=== PATIENT | female | born 1955 | race Caucasian/White ===

== ENCOUNTER 2017-02-04 22:05 | Observation (INO) | payer BC ==
[2017-02-05 00:37] VITALS: BMI 33.0
[2017-02-05] MEDS ORDERED: MORPHINE SULFATE 2 MG/ML SYRINGE IVP PRN (00:58)
[2017-02-05] MEDS ORDERED: ONDANSETRON 4 MG/2 ML VIAL IVP PRN (00:59)
[2017-02-05] MEDS ORDERED: ACETAMINOPHEN TAB 325 MG TAB PO PRN (00:59)
[2017-02-05] MEDS ORDERED: METOPROLOL SUCCINATE (ER) 25 MG TAB.ER.24H PO SCH (01:00)
[2017-02-05] MEDS ORDERED: TRIAMTERENE-HCTZ 37.5-25MG 1 EACH CAP PO SCH (01:00)
[2017-02-05 07:45] VITALS: RESP 18
--- NOTE | 2017-02-05 08:07 | P.CRDCN ---
History of Present Illness Consult date: 02/05/17 Consult reason: chest pain History of present illness: Known coronary artery disease status post CABG in 2013 who sees a snowsport instructor in [facility] presented to the emergency room at [facility] complaining of chest discomfort. She describes her symptoms as squeezing sensation in her chest and her jaw and she in fact has similar symptoms all over her body. There is no history of exertional chest pain shortness of breath paroxysmal nocturnal dyspnea or orthopnea. There is no history of syncope. There is no history of focal neurological deficits. Patient is somewhat forgetful and is a poor historian. I have an EKG on her that shows sinus rhythm with nonspecific ST-T wave changes the first set of troponin at [facility] is negative. I don't have the second troponin this morning. She is intolerant of statins. At the time of my evaluation she appears comfortable at rest and is free of symptoms. In the atypical nature of her symptoms I advised her to undergo stress test for further evaluation this is negative she'll be discharged home if this is abnormal she will undergo invasive angiography Review of Systems Constitutional: Denies chills. Denies fever. Eyes: Denies blurred vision. Denies pain. Ears, nose, mouth and throat: Denies headache. Denies sore throat. Cardiovascular: Has chest pain. Denies shortness of breath. Respiratory: Denies cough. Gastrointestinal: Denies abdominal pain. Denies diarrhea. Denies nausea. Denies vomiting. Musculoskeletal: Denies myalgias. Complains of muscle spasms Integumentary: Denies pruritus. Denies rash. Neurological: Denies numbness. Denies weakness. Psychiatric: Denies anxiety. Denies depression. Endocrine: Denies fatigue. Denies weight change. Genitourinary: Denies burning, hematuria, frequency of urination. Hematological: No anemia or excess bleeding. Past Medical History Past Medical History: GERD/Reflux, Hypertension, Pneumonia Additional Past Medical History / Comment(s): Arthritis, DDD History of Any Multi-Drug Resistant Organisms: None Reported Past Surgical History: Section, Coronary Bypass/CABG, Tonsillectomy, Tubal Ligation Additional Past Surgical History / Comment(s): 4 vessel CABG, X2, All teeth are removed Past Anesthesia/Blood Transfusion Reactions: No Reported Reaction Past Psychological History: Anxiety, Depression Smoking Status: Former smoker Past Alcohol Use History: None Reported Past Drug Use History: None Reported - Past Family History Mother Family Medical History: CVA/TIA Father Family Medical History: Congestive Heart Failure (CHF) Additional Family Medical History / Comment(s): kidney failure Brother(s) Family Medical History: Myocardial Infarction ([place]) Additional Family Medical History / Comment(s): Has 4 brothers all with heart issues. Had CABG Sister(s) Family Medical History: Cancer Additional Family Medical History / Comment(s): Bone CA and heart issues Medications and Allergies Home Medications Medication Instructions Recorded Confirmed Type Metoprolol Succinate (ER) [Toprol 25 mg PO HS 02/05/17 02/05/17 History Xl] Triamterene-Hctz 37.5-25Mg 1 tab PO HS 02/05/17 02/05/17 History [Dyazide 37.5-25 Capsule] Allergies Allergy/AdvReac Type Severity Reaction Status Date / Time furosemide [From Lasix] Allergy Unknown Verified 02/05/17 07:54 diclofenac [From Cataflam] AdvReac Nausea & Verified 02/05/17 07:54 Vomiting statins AdvReac Unknown Uncoded 02/05/17 00:27 Physical Exam Vitals: Vital Signs Temp Pulse Resp BP Pulse Ox 02/05/17 07:44 97.5 F L 61 18 113/69 95 02/05/17 04:00 97.9 F 71 16 119/69 96 02/05/17 01:09 18 02/05/17 00:50 97.6 F 69 16 120/68 96 Intake and Output 02/04/17 02/05/17 02/05/17 22:59 06:59 14:59 Other: # Voids 1 Weight 82 kg General: The patient is awake and alert, in no distress, and does not appear acutely ill. Skin: Skin is warm and dry and no rashes or lesions are noted. Eye: Pupils are equal, round and reactive to light, extra-ocular movements are intact; there is normal conjunctiva bilaterally. Ears, nose, mouth and throat: There are moist mucous membranes and no oral lesions. Neck: The neck is supple, there is no tenderness or JVD. Cardiovascular: There is a regular rate and rhythm. No murmur, rub or gallop is appreciated. Respiratory: Lungs are clear to auscultation, respirations are non-labored, breath sounds are equal. Gastrointestinal: Soft, non-distended, non-tender abdomen without masses or organomegaly noted. There is no rebound or guarding present. Bowel sounds are unremarkable. Back: There is no tenderness to palpation in the midline. There is no obvious deformity. Musculoskeletal: Normal ROM, no tenderness, There is no pedal edema. There is no calf tenderness or swelling. Extremities: No edema. Vascular: Femoral pulse is normal. Posterior tibial pulses are normal .Dorsalis pedis is palpable. Neurological: CN II-XII intact. There are no obvious motor or sensory deficits. Speech is normal. Psychiatric: Cooperative, appropriate mood & affect, normal judgment. Results Current Medications Generic Name Dose Route Start Last Admin Trade Name Freq PRN Reason Stop Dose Admin Acetaminophen 650 mg 02/05/17 00:59 Tylenol Tab PO Q4HR PRN Fever and/ or Pain Aspirin 81 mg 02/05/17 09:00 Aspirin PO DAILY KANNAN Metoprolol Succinate 25 mg 02/05/17 01:00 02/05/17 01:44 Toprol Xl PO 25 mg HS KANNAN Administration Morphine Sulfate 2 mg 02/05/17 00:58 Morphine Sulfate (Inj) IVP Q4H PRN Pain/Discomfort Ondansetron HCl 4 mg 02/05/17 00:59 Zofran IVP Q6HR PRN Nausea And Vomiting Triamterene/HCTZ 1 each 02/05/17 01:00 02/05/17 01:44 Dyazide PO 1 each HS KANNAN Administration Intake and Output 02/04/17 02/05/17 02/05/17 22:59 06:59 14:59 Other: # Voids 1 Weight 82 kg EKG Interpretations (text) Normal sinus rhythm with nonspecific ST-T wave changes Assessment and Plan Plan: Pericardial chest pain CAD status post CABG I will obtain another set of troponin and this is negative scheduled the patient for a stress test
[2017-02-05] MEDS ORDERED: ASPIRIN 81 MG PO SCH (09:00)
[2017-02-05 09:23] LABS: Creatine Kinase 57 U/L (30-135)
[2017-02-05 09:35] LABS: Creatine Kinase MB 0.8 ng/mL (0.0-2.4); Troponin I <0.012 ng/mL (0.000-0.034)
[2017-02-05] MEDS ORDERED: DOBUTamine DRIP for NUC MED 500 MG in DEXTROSE/WATER 1 250ML.BAG IV ONE (09:43)
--- NOTE | 2017-02-05 09:56 | ECHOF ---
Referral Reason:chest pain MEASUREMENTS -------- HEIGHT: 157.5 cm WEIGHT: 81.6 kg BP: IVSd: 0.7 cm (0.6 - 1.1) LVIDd: 4.8 cm (3.9 - 5.3) LVPWd: 0.9 cm (0.6 - 1.1) IVSs: 1.4 cm LVIDs: 2.4 cm LVPWs: 1.8 cm Ao Diam: 2.7 cm (2.0 - 3.7) AV Cusp: 1.9 cm (1.5 - 2.6) LA Diam: 3.6 cm (2.7 - 3.8) MV EXCURSION: 19.436 mm (> 18.000) MV EF SLOPE: 102 mm/s (70 - 150) EPSS: 0.3 cm MV E Sergei: 0.95 m/s MV DecT: 238 ms MV A Sergei: 0.71 m/s MV E/A Ratio: 1.33 RAP: 5.00 mmHg RVSP: 26.04 mmHg FINDINGS -------- Sinus rhythm. This was a technically good study. The left ventricular size is normal. Left ventricular wall thickness is normal. Overall left ventricular systolic function is normal with, an EF between 55 - 60 %. There is paradoxical/dysynergic septal motion consistent with post-operative status. The right ventricle is normal in size and function. The left atrium is normal in size. The right atrium is normal in size. The aortic valve is trileaflet, and appears structurally normal. No aortic stenosis or regurgitation. The mitral valve leaflets are mildly thickened. Mild mitral regurgitation is present. Mild tricuspid regurgitation present. The right ventricular systolic pressure, as measured by Doppler, is 26.04mmHg. Pulmonic valve appears structurally normal. The aortic root size is normal. The pericardium is normal. CONCLUSIONS -------- 1. Sinus rhythm. 2. The aortic valve is trileaflet, and appears structurally normal. No aortic stenosis or regurgitation. 3. The mitral valve leaflets are mildly thickened. 4. Mild mitral regurgitation is present. 5. Mild tricuspid regurgitation present. 6. The right ventricular systolic pressure, as measured by Doppler, is 26.04mmHg. 7. Pulmonic valve appears structurally normal. 8. The aortic root size is normal. 9. The pericardium is normal. 10. This was a technically good study. 11. The left ventricular size is normal. 12. Left ventricular wall thickness is normal. 13. Overall left ventricular systolic function is normal with, an EF between 55 - 60 %. 14. There is paradoxical/dysynergic septal motion consistent with post-operative status. 15. The right ventricle is normal in size and function. 16. The left atrium is normal in size. 17. The right atrium is normal in size. WARP KNITTER: Sudha Landin RDCS
[2017-02-05] MEDS ORDERED: ATROPINE SULFATE 0.1 MG/ML 10ML SYRINGE ONE (10:25)
--- NOTE | 2017-02-05 11:11 | ECHOS ---
STRESS ECHOCARDIOGRAM DATE OF SERVICE: 02/05/2017 DOBUTAMINE STRESS ECHO MEDICATIONS:: BASELINE HEART RATE: 74 BASELINE BLOOD PRESSURE: 110/57 MAXIMUM HEART RATE: 142 MAXIMUM BLOOD PRESSURE: 144/47 85% MPHR: 136 100% MPHR: 160 METS: MAXIMUM STAGE REACHED: TOTAL EXERCISE TIME: INDICATIONS: Shortness of breath. CLINICAL INFORMATION: Baseline EKG shows sinus rhythm, normal axis, normal intervals. The patient was given intravenous dobutamine over a period of 9-1/2 minutes as per protocol. Did not achieve target heart rate. Hence she received 0.5 mg of atropine following which she attained 88% of predicted maximal heart rate without chest pain. At peak exercise, there was [address]-segment depression noted Baseline echo shows normal left ventricular size, wall motion and systolic function. There is atypical septal motion noted secondary to prior bypass surgery. Post dobutamine infusion, there was normal hyperdynamic response of all segments of myocardium noted. CONCLUSIONS: 1. Nondiagnostic EKG changes with dobutamine infusion. 2. Negative dobutamine echo. MMODL / IJN: [id number] /
[2017-02-05 15:47] VITALS: BP 105/67; PULSE 78; TEMP 98.2
[2017-02-05] MEDS ORDERED: MAG HYDROX/AL HYDROX/SIMETH 30 ML CUP PO STA (16:07)
--- NOTE | 2017-02-05 16:19 | P.HPIM ---
History of Present Illness H&P Date: 02/05/17 Chief Complaint: Chest pain Mr. Maurer is a 61-year-old female with a known history of coronary artery disease status post quadruple bypass graft in 2012 hypertension and other medical problems was admitted hospital at [place] and was transferred with complaints of chest pain/discomfort. Patient apparently has been having chest discomfort mainly lower midsternal and epigastric region. Symptoms are more like squeezing-like pain some dressing to jaw and left shoulder. Patient otherwise denied any nausea. No dizziness or lightheadedness. Patient has been having symptoms for the past 4-5 days and is getting worse which made her go to the hospital. EKG showed normal sinus rhythm with nonspecific ST-T wave changes. Initial troponin at [facility] is negative. Patient still having epigastric discomfort at this time. Patient was seen by cardiology and stress test was ordered. No fever no chills. No recent illnesses. Patient is having chronic left lower leg swelling from the vein graft from bypass surgery. patient does take Lasix for that. Patient denied any increased or worsening leg swelling recently. Review of Systems Constitutional: Patient denies any fever or chills . No generalized weakness or weight loss. Abdomen: Patient denied nausea vomiting and diarrhea and he does have epigastric discomfort.. Cardiovascular: Patient denies any chest pain or short of breath no palpitations. Respiratory: patient denied any cough is from production. No shortness of breath Neurologic: Patient denied any numbness or tingling headache. Musculoskeletal: Patient denies any complaints of joint swelling or deformity. Skin: Negative Psychiatric: Negative Endocrine: No heat or cold intolerance. No recent weight gain. Genitourinary: No dysuria or hematuria. All other 14 point ROS negative except the above Past Medical History Past Medical History: GERD/Reflux, Hypertension, Pneumonia Additional Past Medical History / Comment(s): Arthritis, DDD History of Any Multi-Drug Resistant Organisms: None Reported Past Surgical History: Section, Coronary Bypass/CABG, Tonsillectomy, Tubal Ligation Additional Past Surgical History / Comment(s): 4 vessel CABG, X2, All teeth are removed Past Anesthesia/Blood Transfusion Reactions: No Reported Reaction Past Psychological History: Anxiety, Depression Smoking Status: Former smoker Past Alcohol Use History: None Reported Past Drug Use History: None Reported - Past Family History Mother Family Medical History: CVA/TIA Father Family Medical History: Congestive Heart Failure (CHF) Additional Family Medical History / Comment(s): kidney failure Brother(s) Family Medical History: Myocardial Infarction ([place]) Additional Family Medical History / Comment(s): Has 4 brothers all with heart issues. Had CABG Sister(s) Family Medical History: Cancer Additional Family Medical History / Comment(s): Bone CA and heart issues Medications and Allergies Home Medications Medication Instructions Recorded Confirmed Type Metoprolol Succinate (ER) [Toprol 25 mg PO HS 02/05/17 02/05/17 History Xl] Triamterene-Hctz 37.5-25Mg 1 tab PO HS 02/05/17 02/05/17 History [Dyazide 37.5-25 Capsule] Allergies Allergy/AdvReac Type Severity Reaction Status Date / Time furosemide [From Lasix] Allergy Unknown Verified 02/05/17 07:54 diclofenac [From Cataflam] AdvReac Nausea & Verified 02/05/17 07:54 Vomiting statins AdvReac Unknown Uncoded 02/05/17 00:27 Physical Exam Vitals: Vital Signs Temp Pulse Resp BP Pulse Ox 02/05/17 11:22 97.5 F L 72 18 117/84 97 02/05/17 07:44 97.5 F L 61 18 113/69 95 02/05/17 04:00 97.9 F 71 16 119/69 96 02/05/17 01:09 18 02/05/17 00:50 97.6 F 69 16 120/68 96 Intake and Output 02/04/17 02/05/17 02/05/17 22:59 06:59 14:59 Intake Total 400 Balance 400 Intake: Oral 400 Other: Voiding Method Toilet # Voids 1 Weight 82 kg 81.647 kg Patient Weight 02/06/17 06:59 Weight 81.647 kg PHYSICAL EXAMINATION: Patient is lying in the bed comfortably, no acute distress, awake alert and oriented.. HEENT: Normocephalic. Neck is supple. Pupils reactive. Nostrils clear. Oral cavity is moist. Ears reveal no drainage. Neck reveals no JVD, carotid bruits, or thyromegaly. CHEST EXAMINATION: Trachea is central. Symmetrical expansion. Lung sanderson clear to auscultation and percussion. CARDIAC: Normal S1, S2 with no gallops. No murmurs ABDOMEN: Soft. Bowel sounds normal. No organomegaly. No abdominal bruits. Extremities: Left lower extremity 2+ edema. No right-sided leg swelling. No clubbing or cyanosis Neurologically awake, alert, oriented x3 with well-coordinated movements. No focal deficits noted Skin: No rash or skin lesions. Psychiatric: Operative. Nonsuicidal Musculoskeletal: No joint swelling or deformity. Normal range of motion. Results Results: Laboratory data at [facility] was reviewed. Potassium 3.6 Troponin less than 0.012 Thrombosis Risk Factor Assmnt - DVT/VTE Prophylaxis DVT/VTE Prophylaxis: Pharmacologic Prophylaxis ordered - Choose All That Apply Each Factor Represents 1 point: Age 41-60 years Thrombosis Risk Factor Assessment Total Risk Factor Score: 1 Thrombosis Risk Factor Assessment Level: Low Risk Assessment and Plan Plan: Chest pain in a patient with known history of coronary artery disease. We will rule out acute coronary syndrome History of CAD status post quadruple bypass graft in 2013 Hypertension Chronic left lower extremity swelling Obesity BMI 32.9 Mild hypokalemia 3.6 GERD DVT prophylaxis Plan: Patient be continued on telemetry monitoring. second set of troponin was ordered. Cardiology is planning for stress test today. Continue the home medications and further recommendations based on the clinical course. Time with Patient: Greater than 30
--- NOTE | 2017-02-06 01:19 | P.DS ---
Providers Date of admission: 02/05/17 00:20 Expected date of discharge: 02/05/17 Attending physician: Riky Arias Consults: 02/05/17 01:00 Consult Physician Routine Consulting Provider: Marleny Joseph Consult Reason/Comments: Chest Pain Do you want consulting provider notified?: Yes Primary care physician: Stated None Hospital Course: Chest pain ruled out acute coronary syndrome. Dobutamine stress echo negative. Likely due to GERD History of CAD status post quadruple bypass graft in 2012 Hypertension Chronic left lower extremity swelling. After CABG Obesity BMI 32.9 Mild hypokalemia 3.6 GERD DVT prophylaxis Hospital course. Mr. Maurer is a 61-year-old female with a known history of coronary artery disease status post quadruple bypass graft in 2012 hypertension and other medical problems was admitted hospital at [place] and was transferred with complaints of chest pain/discomfort. Patient apparently has been having chest discomfort mainly lower midsternal and epigastric region. Symptoms are more like squeezing-like pain some dressing to jaw and left shoulder. Patient otherwise denied any nausea. No dizziness or lightheadedness. Patient has been having symptoms for the past 4-5 days and is getting worse which made her go to the hospital. EKG showed normal sinus rhythm with nonspecific ST-T wave changes. Initial troponin at [facility] is negative. Patient still having epigastric discomfort at this time. Patient was seen by cardiology and stress test was ordered. No fever no chills. No recent illnesses. Patient is having chronic left lower leg swelling from the vein graft from bypass surgery. patient does take Lasix for that. Patient denied any increased or worsening leg swelling recently. Patient was continued on telemetry monitoring. second set of troponin was ordered. Patient is negative. Cardiology seen the patient and stress test was done today. Continued the home medications. Patient was started on Protonix for 4 weeks and was a dose of Maalox was given while in the hospital. Patient did improve symptomatically. Stress test is negative. Patient had dobutamine stress echo. Patient will be discharged home and follow with primary care clinic as well as cardiology as an outpatient. Discharge physical examination was done Patient Condition at Discharge: Stable Plan - Discharge Summary New Discharge Prescriptions: New Pantoprazole Sodium [Protonix] 40 mg PO JONATHON-ZHENKFSAshely #30 tablet. Potassium Chloride [K-Tab ER] 10 meq PO DAILY #10 tablet.er Continue Metoprolol Succinate (ER) [Toprol XL] 25 mg PO HS Triamterene-Hctz 37.5-25Mg [Dyazide 37.5-25 Capsule] 1 tab PO HS Discharge Medication List Metoprolol Succinate (ER) [Toprol XL] 25 mg PO HS 02/05/17 [History] Pantoprazole Sodium [Protonix] 40 mg PO AC-JASMINT #30 tablet.dr 02/05/17 [Rx] Potassium Chloride [K-Tab ER] 10 meq PO DAILY #10 tablet.er 02/05/17 [Rx] Triamterene-Hctz 37.5-25Mg [Dyazide 37.5-25 Capsule] 1 tab PO HS 02/05/17 [ History] Patient Instructions/Handouts: Chest Pain (GEN) Discharge Disposition: HOME SELF-CARE
== END 2017-02-05 16:44 | disposition home or self-care (01) ==
LOC: 3OBS 02-05 00:20
PROVIDERS: ADMIT Internal Medicine; ATTEND Internal Medicine
DX: R07.89 Other chest pain (principal); R10.13 Epigastric pain; R07.2 Precordial pain; K21.9 Gastro-esophageal reflux disease without esophagitis; I25.10 Atherosclerotic heart disease of native coronary artery without angina pectoris; Z95.1 Presence of aortocoronary bypass graft; I10 Essential (primary) hypertension; M79.89 Other specified soft tissue disorders; Z68.32 Body mass index [BMI] 32.0-32.9, adult; E66.9 Obesity, unspecified; E87.6 Hypokalemia; Z87.01 Personal history of pneumonia (recurrent); Z87.891 Personal history of nicotine dependence; Z80.8 Family history of malignant neoplasm of other organs or systems; Z79.899 Other long term (current) drug therapy; Z88.8 Allergy status to other drugs, medicaments and biological substances
CPT/HCPCS: 93017; 93306; 93350; 82550; 82553; 84484; G0378; G0379; J1250; J0461

== ENCOUNTER 2019-07-03 14:17 | Emergency (ER) | payer BC ==
[2019-07-03 14:24] VITALS: TEMP 97.2
--- NOTE | 2019-07-03 15:11 | ED ---
General Adult HPI - General Chief complaint: Neuro Symptoms/Deficit Stated complaint: Vision loss, headache Time Seen by Provider: 07/03/19 14:43 Source: patient, RN notes reviewed Mode of arrival: ambulatory Limitations: no limitations - History of Present Illness Initial comments: This a 63-year-old female presents emergency Department with chief complaint of headache. Patient states that she's been having some visual disturbances for several years states that she is evaluated by multiple top and seat cover fitter. Patient states her most recent diagnosis of her right eye includes possibility of her iritis versus ischemic retinopathy. Patient's states that she was scheduled for an MRI states that she cannot completely because she felt claustrophobic. Patient is scheduled now for an open MRI. Patient states today she developed a headache so she was worried presented to the emergency Department. Patient states that she has not had any increasing loss of her vision. She states it has been stable since her evaluation by Dr. Sneed. 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 Patient denies fever, chills, trauma. Patient states her headache is in the posterior aspect. She states she did take some Aleve and did help. She does not want any further medications. She states she prefers to be all-natural. Patient has no complaints of chest pain no focal weakness no paresthesias. - Related Data Home Medications Medication Instructions Recorded Confirmed Metoprolol Succinate (ER) [Toprol 25 mg PO HS 02/05/17 02/05/17 XL] Triamterene-Hctz 37.5-25Mg 1 tab PO HS 02/05/17 02/05/17 [Dyazide 37.5-25 Capsule] Previous Rx's Medication Instructions Recorded Pantoprazole Sodium [Protonix] 40 mg PO JONATHON-BRKFST #30 tablet. 02/05/17 Potassium Chloride [K-Tab ER] 10 meq PO DAILY #10 tablet.er 02/05/17 Allergies Allergy/AdvReac Type Severity Reaction Status Date / Time furosemide [From Lasix] Allergy Unknown Verified 07/03/19 14:24 diclofenac [From Cataflam] AdvReac Nausea & Verified 07/03/19 14:24 Vomiting statins AdvReac Unknown Uncoded 07/03/19 14:24 Review of Systems ROS Statement: Those systems with pertinent positive or pertinent negative responses have been documented in the HPI. ROS Other: All systems not noted in ROS Statement are negative. Past Medical History Past Medical History: GERD/Reflux, Hypertension, Pneumonia Additional Past Medical History / Comment(s): Arthritis, DDD History of Any Multi-Drug Resistant Organisms: None Reported Past Surgical History: Section, Coronary Bypass/CABG, Tonsillectomy, Tubal Ligation Additional Past Surgical History / Comment(s): 4 vessel CABG, X2, All teeth are removed Past Anesthesia/Blood Transfusion Reactions: No Reported Reaction Past Psychological History: Anxiety, Depression Smoking Status: Former smoker Past Alcohol Use History: None Reported Past Drug Use History: None Reported - Past Family History Mother Family Medical History: CVA/TIA Father Family Medical History: Congestive Heart Failure (CHF) Additional Family Medical History / Comment(s): kidney failure Brother(s) Family Medical History: Myocardial Infarction ([place]) Additional Family Medical History / Comment(s): Has 4 brothers all with heart issues. Had CABG Sister(s) Family Medical History: Cancer Additional Family Medical History / Comment(s): Bone CA and heart issues General Exam Limitations: no limitations General appearance: alert, in no apparent distress Head exam: Present: atraumatic, normocephalic, normal inspection Eye exam: Present: normal appearance, PERRL, EOMI. Absent: scleral icterus, conjunctival injection, periorbital swelling ENT exam: Present: normal exam, normal oropharynx, mucous membranes moist, TM's normal bilaterally Neck exam: Present: normal inspection, full ROM. Absent: tenderness, meningismus, lymphadenopathy Respiratory exam: Present: normal lung sounds bilaterally. Absent: respiratory distress, wheezes, rales, rhonchi, stridor Cardiovascular Exam: Present: regular rate, normal rhythm, normal heart sounds. Absent: systolic murmur, diastolic murmur, rubs, gallop, clicks Neurological exam: Present: alert, oriented X3, CN II-XII intact Skin exam: Present: warm, dry, intact, normal color. Absent: rash Course Vital Signs 07/03/19 07/03/19 07/03/19 14:19 16:10 16:30 Temperature 97.2 F L Pulse Rate 87 84 85 Respiratory 20 18 18 Rate Blood Pressure 130/79 131/71 131/71 O2 Sat by Pulse 95 95 95 Oximetry Medical Decision Making - Medical Decision Making CT and CTA were obtained of the brain there are no acute findings labwork is unremarkable. Patient is scheduled for an MRI. I do not see any contaminants any worrisome signs at this time. Patient has been diagnosed with ischemic retinopathy versus temporal arteritis this is less likely to be temporal arteritis as she has negative CRP and ESR. Patient will follow-up with ophthalmology an MRI on Friday. Patient is neurovascular intact no acute deficits. Patient declined pain meds for headache. - Lab Data Result diagrams: 07/03/19 15:04 07/03/19 15:04 Lab Results 07/03/19 07/03/19 Range/Units 15:04 15:04 WBC 13.1 H (3.8-10.6) k/uL RBC 4.68 (3.80-5.40) m/uL Hgb 14.3 (11.4-16.0) gm/dL Hct 41.8 (34.0-46.0) % MCV 89.3 (80.0-100.0) fL MCH 30.6 (25.0-35.0) pg MCHC 34.3 (31.0-37.0) g/dL RDW 13.1 (11.5-15.5) % Plt Count 332 (150-450) k/uL Neutrophils % 82 % Lymphocytes % 12 % Monocytes % 4 % Eosinophils % 1 % Basophils % 0 % Neutrophils # 10.7 H (1.3-7.7) k/uL Lymphocytes # 1.6 (1.0-4.8) k/uL Monocytes # 0.5 (0-1.0) k/uL Eosinophils # 0.1 (0-0.7) k/uL Basophils # 0.0 (0-0.2) k/uL ESR 10 (0-20) mm/hr Sodium 138 (137-145) mmol/L Potassium 3.9 (3.5-5.1) mmol/L Chloride 103 (98-107) mmol/L Carbon Dioxide 24 (22-30) mmol/L Anion Gap 11 mmol/L BUN 21 H (7-17) mg/dL Creatinine 0.88 (0.52-1.04) mg/dL Est GFR (CKD-EPI)AfAm 82 (>60 ml/min/1.73 sqM) Est GFR (CKD-EPI)NonAf 71 (>60 ml/min/1.73 sqM) Glucose 191 H (74-99) mg/dL Calcium 9.4 (8.4-10.2) mg/dL Total Bilirubin 0.9 (0.2-1.3) mg/dL AST 27 (14-36) U/L ALT 23 (4-34) U/L Alkaline Phosphatase 88 (38-126) U/L C-Reactive Protein 9.2 (<10.0) mg/L Total Protein 7.7 (6.3-8.2) g/dL Albumin 4.5 (3.5-5.0) g/dL Disposition Clinical Impression: Headache, Vision changes Disposition: HOME SELF-CARE Condition: Stable Instructions (If sedation given, give patient instructions): Acute Headache (ED) Additional Instructions: Please return to the Emergency Department if symptoms worsen or any other concerns. Is patient prescribed a controlled substance at d/c from ED?: No Referrals: Blake Haas MD [Primary Care Provider] - 1-2 days Time of Disposition: 16:53
[2019-07-03 15:34] LABS: Basophils % (A) 0 %; Eosinophils # (A) 0.1 k/uL (0-0.7); Eosinophils % (A) 1 %; HCT 41.8 % (34.0-46.0); HGB 14.3 gm/dL (11.4-16.0); Lymphocytes # (A) 1.6 k/uL (1.0-4.8); Lymphocytes % (A) 12 %; MCH 30.6 pg (25.0-35.0); MCHC 34.3 g/dL (31.0-37.0); MCV 89.3 fL (80.0-100.0); Monocytes # (A) 0.5 k/uL (0-1.0); Monocytes % (A) 4 %; Neutrophils # (A) 10.7 k/uL (1.3-7.7); Neutrophils % (A) 82 %; Platelet Count 332 k/uL (150-450); RBC 4.68 m/uL (3.80-5.40); RDW 13.1 % (11.5-15.5); WBC 13.1 k/uL (3.8-10.6)
[2019-07-03 15:40] LABS: Albumin 4.5 g/dL (3.5-5.0); C Reactive Protein 9.2 mg/L (<10.0); Calcium 9.4 mg/dL (8.4-10.2); Potassium 3.9 mmol/L (3.5-5.1); Total Bilirubin 0.9 mg/dL (0.2-1.3); Total Protein 7.7 g/dL (6.3-8.2)
[2019-07-03 16:17] VITALS: RESP 18
[2019-07-03 16:24] LABS: Erythrocyte Sedimentation Rate 10 mm/hr (0-20)
[2019-07-03 16:37] VITALS: PULSE 85
--- NOTE | 2019-07-03 16:42 | CT ---
EXAMINATION TYPE: CT brain wo con DATE OF EXAM: 07/03/2019 COMPARISON: None HISTORY: Headache, vision issues, foot numbness CT DLP: 1084 mGycm Automated exposure control for dose reduction was used. Ventricles have normal size. There is no mass effect nor midline shift. There is no sign of intracran ial hemorrhage. The calvarium is intact. There is no evidence of cerebral edema. IMPRESSION: Normal head CT scan.
--- NOTE | 2019-07-03 16:48 | CT ---
EXAMINATION TYPE: CT angio head DATE OF EXAM: 07/03/2019 COMPARISON: None multiple axial sections were obtained from the base base to the vertex of the brain with intravenous contrast. There are 3-D post processed images. HISTORY: Headache, vision issues, foot numbness CT DLP: 827.4 mGycm Automated exposure control for dose reduction was used. CONTRAST: Performed with IV Contrast, patient injected with 100 mL of Isovue 370. There is arterial flow in the vertebrobasilar artery system. There is arterial flow in the anterior m iddle and posterior cerebral arteries. There is no evidence of intracranial aneurysm or neovascularit y. There is no mass effect. I see no evidence of hemodynamic stenosis. I see no bony destructive process. Calvarium is intact. There is normal contrast opacification of the venous sinuses. IMPRESSION: Negative CT angiogram of the brain.
[2019-07-03 17:01] VITALS: BP 112/59
== END 2019-07-03 16:59 | disposition home or self-care (01) ==
LOC: EC 14:17
DX: R51 Headache (principal); H53.9 Unspecified visual disturbance; I10 Essential (primary) hypertension; Z79.899 Other long term (current) drug therapy; Z88.8 Allergy status to other drugs, medicaments and biological substances; Z88.6 Allergy status to analgesic agent; Z87.891 Personal history of nicotine dependence; Z95.1 Presence of aortocoronary bypass graft
CPT/HCPCS: 36415; 80053; 85652; 85025; 86140; 70496; 70450; 99284; Q9967

== ENCOUNTER → 2022-01-22 | Outpatient (CLI) | payer MEDICARE, BC ==
--- NOTE | 2022-01-23 03:02 | MR ---
EXAMINATION TYPE: MR angio head wo/neck wo/w con DATE OF EXAM: 01/22/2022 COMPARISON: HISTORY: Headaches, sudden onset, pulsatile tinnitus, hamily history of aneurysm, Rt vision loss CONTRAST: Standard multiplanar, multisequence MRI departmental protocol images were obtained without contrast a nd with 10 mL intravenous Gadavist gadolinium contrast. There are 3-D post processed images. There is arterial flow in the anterior middle and posterior cerebral arteries bilaterally. There is a rterial flow in the intracranial internal carotid arteries bilaterally. There is arterial flow in the vertebrobasilar artery system. No mass effect. No evidence of intracranial aneurysm or neovascularit y was evident of hemodynamic stenosis. There is normal branching pattern of the great vessels on the aortic arch. There is bilateral arteria l flow in the subclavian arteries. There is arterial flow in the common internal and external carotid arteries bilaterally. There is fairly wide patency of the carotid artery bifurcations. The vertebral arteries appear widely patent. No evidence of carotid or vertebral artery aneurysm or dissection. IMPRESSION: Normal MR angiogram of the neck. Normal MR angiogram of the brain.
== END | disposition home or self-care (01) ==
LOC: RADMRIMAIN 10:19
PROVIDERS: ATTEND Nurse Practitioner Family
DX: R51.9 Headache, unspecified (principal)
CPT/HCPCS: 70544; 70549; A9585

== ENCOUNTER 2022-12-10 17:59 | Emergency (ER) | payer MEDICARE, BC ==
--- NOTE | 2022-12-10 18:14 | ED ---
Chest Pain HPI - General Source: patient, family Mode of arrival: ambulatory Limitations: no limitations <Carly Peres - Last Filed: 12/10/22 18:07> - General Source: RN notes reviewed <Sandra Medina - Last Filed: 12/10/22 23:31> - General Chief Complaint: Chest Pain Stated Complaint: Numbness all over Time Seen by Provider: 12/10/22 18:08 - History of Present Illness Initial Comments: Patient is a 67-year-old female presenting to the emergency room with complaints of numbness all over her body, recent ear infection with dizziness upon standing, intermittent chest pain and intermittent shortness of breath these have no aggravating or alleviating factors. Her primary concern is with numbness all over her body. Patient was evaluated for same complaints at [facility] prior to arrival but she did not bring any documentation with her. She has a history of CAD and CABG but only takes "herbs" no medications regularly. (Carly Peres) Quick note reviewed: This is a 67-year-old female with past medical history significant only who presents the emergency department with complaints. She notes that she has numbness all over her body with sudden onset earlier today. She does report having a recent left ear infection which she is currently on amoxicillin. She is complaining of dizziness where she feels like the room is spinning changes position. She is complaining of chest pain int ermittently. She was seen and evaluated at [facility] prior to arrival she was given Antivert insulin regimen discharge. She has a past medical history of coronary artery disease and cardiac stents however she does not take Plavix that she is prescribed. She reports that she takes a long list of herbs and supplements that she felt prescribed due to her own research. She is also complaining of excessive thirst. Denies any injury or trauma. Denies any alcohol or illicit drug use. (Sandra Medina) - Related Data Home Medications Medication Instructions Recorded Confirmed Metoprolol Succinate (ER) [Toprol 25 mg PO HS 02/05/17 02/05/17 XL] Triamterene-Hctz 37.5-25Mg 1 tab PO HS 02/05/17 02/05/17 [Dyazide 37.5-25 Capsule] Previous Rx's Medication Instructions Recorded Pantoprazole Sodium [Protonix] 40 mg PO -BRKFST #30 tablet.dr 02/05/17 Potassium Chloride [K-Tab ER] 10 meq PO DAILY #10 tablet.er 02/05/17 Allergies Allergy/AdvReac Type Severity Reaction Status Date / Time furosemide [From Lasix] Allergy Unknown Verified 07/03/19 14:24 diclofenac [From Cataflam] AdvReac Nausea & Verified 07/03/19 14:24 Vomiting statins AdvReac Unknown Uncoded 07/03/19 14:24 Review of Systems ROS Other: All systems not noted in ROS Statement are negative. <Carly Peres - Last Filed: 12/10/22 18:07> ROS Other: All systems not noted in ROS Statement are negative. <Sandra Medina - Last Filed: 12/10/22 23:31> ROS Statement: Those systems with pertinent positive or pertinent negative responses have been documented in the HPI. Past Medical History Past Medical History: GERD/Reflux, Hypertension, Pneumonia Additional Past Medical History / Comment(s): Arthritis, DDD History of Any Multi-Drug Resistant Organisms: None Reported Past Surgical History: Section, Coronary Bypass/CABG, Tonsillectomy, Tubal Ligation Additional Past Surgical History / Comment(s): 4 vessel CABG, X2, All teeth are removed Past Anesthesia/Blood Transfusion Reactions: No Reported Reaction Past Psychological History: Anxiety, Depression Past Alcohol Use History: None Reported Past Drug Use History: None Reported - Past Family History Mother Family Medical History: CVA/TIA Father Family Medical History: Congestive Heart Failure (CHF) Additional Family Medical History / Comment(s): kidney failure Brother(s) Family Medical History: Myocardial Infarction ([place]) Additional Family Medical History / Comment(s): Has 4 brothers all with heart issues. Had CABG Sister(s) Family Medical History: Cancer Additional Family Medical History / Comment(s): Bone CA and heart issues <Carly Peres - Last Filed: 12/10/22 18:07> General Exam Limitations: no limitations <Carly Peres - Last Filed: 12/10/22 18:07> <Sandra Medina - Last Filed: 12/10/22 23:31> - General Exam Comments Initial Comments: Visual Physical Exam Vital signs reviewed General: Well-appearing, no acute distress, appears intoxicated. Head: Normocephalic, atraumatic Eyes: PERRLA, EOMI ENT: Airway patent Chest: Nonlabored breathing Skin: No visual rash, normal skin tone Neuro: Alert and oriented 3 Musculoskeletal: No gross abnormalities I performed the Quicknote portion of this note signed Carly Peres POWER LINE INSTALLER-c (Carly Peres) General: Alert, in no acute distress Head: atraumatic normocephalic. Eyes PERRL, EOMI intact, mucous membranes moist Respiratory: Lungs clear to auscultation bilaterally Cardiovascular: Heart rate regular rate and rhythm Abdominal: Soft without guarding or rebound Extremities: Normal inspection with full range of motion and normal capillary refill Neuroogic: alert and oriented 3, CN II-XII intact, able to ambulate with steady gait Skin: warm dry and intact with normal color (Sandra Medina) Course Vital Signs 12/10/22 12/10/22 18:03 22:38 Temperature 98 F Pulse Rate 85 70 Respiratory 16 18 Rate Blood Pressure 179/83 160/86 O2 Sat by Pulse 96 97 Oximetry Chest Pain MDM <Sandra Medina - Last Filed: 12/10/22 23:31> - MDM Was pt. sent in by a medical professional or institution ([facility] Owens, POWER LINE INSTALLER, urgent care, hospital, or penitentiary...) When possible be specific @ -[No] Did you speak to anyone other than the patient for history (EMS, parent, family, police, friend...)? What history was obtained from this source @ -Patient Daughter Did you review nursing and triage notes (agree or disagree)? Why? @ -[I reviewed and agree with nursing and triage notes] Were old charts reviewed (outside hosp., previous admission, EMS record, old EKG, old radiological studies, urgent care reports/EKG's, penitentiary records)? Report findings @ -[No old charts were reviewed] Differential Diagnosis (chest pain, altered mental status, abdominal pain women, abdominal pain men, vaginal bleeding, weakness, fever, dyspnea, syncope, headache, dizziness, GI bleed, back pain, seizure, CVA, palpatations, mental health, musculoskeletal)? @ -[not applicable] EKG interpreted by me (3pts min.). @ -[As above] X-rays interpreted by me (1pt min.). @ -[None done] CT interpreted by me (1pt min.). @ -CT brain and C-spine negative for any acute intracranial process or fracture or impingement U/S interpreted by me (1pt. min.). @ -[None done] What testing was considered but not performed or refused? (CT, X-rays, U/S, labs)? Why? @ -[None] What meds were considered but not given or refused? Why? @ -[None] Did you discuss the management of the patient with other professionals (professionals i.e. DrEben, PA, POWER LINE INSTALLER, lab, RT, psych nurse, sexual assault social worker, certified paralegal, teacher, housing management officer, immigration case manager)? Give summary @ -[No] Was smoking cessation discussed for >3mins.? @ -[No] Was critical care preformed (if so, how long)? @ -[No] Were there social determinants of health that impacted care today? How? (Homelessness, low income, unemployed, alcoholism, drug addiction, transportation, low edu. Level, literacy, decrease access to med. care, prison, rehab)? @ -[No] Was there de-escalation of care discussed even if they declined (Discuss DNR or withdrawal of care, Hospice)? DNR status @ -[No] What co-morbidities impacted this encounter? (DM, HTN, Smoking, COPD, CAD, C ancer, CVA, ARF, Chemo, Hep., AIDS, mental health diagnosis, sleep apnea, morbid obesity)? @ -[None] Was patient admitted / discharged? Hospital course, mention meds given and route, prescriptions, significant lab abnormalities, going to OR and other pertinent info. @ -Discharged. This is a 67-year-old female who presents to the emergency department with generalized body numbness. Patient had a thorough history and physical exam performed on the emergency department. Physical exam is essentially unremarkable heart rate regular rate and rhythm, lungs clear to auscultation bilaterally, abdomen soft and nontender. Able to move all extremities freely. Patient able to ambulate to the bathroom with steady gait. Patient had an extensive laboratory workup and imaging study performed which is essentially unremarkable. I discussed the results in detail with the patient verbalized understanding and all questions were addressed. She was given 1 L of IV fluids and Antivert symptomatic relief. Patient will be discharged home in stable condition with recommended close follow-up with PCP in 1-2 days. Case discussed with Dr. Wright Jaquan who agrees with plan of care Undiagnosed new problem with uncertain prognosis? @ -[No] Drug Therapy requiring intensive monitoring for toxicity (Heparin, Nitro, Insulin, Cardizem)? @ -[No] Were any procedures done? @ -[No] Diagnosis/symptom? @ -Dizziness - Numbness of Extremity - Increased thirst Acute, or Chronic, or Acute on Chronic? @ -Acute Uncomplicated (without systemic symptoms) or Complicated (systemic symptoms)? @ -Uncomplicated Side effects of treatment? @ -[No] Exacerbation, Progression, or Severe Exacerbation? @ -[No] Poses a threat to life or bodily function? How? (Chest pain, [place], [place], pneumonia, PE, COPD, DKA, ARF, appy, cholecystitis, CVA, Diverticulitis, Homicidal, Suicidal, threat to staff... and all critical care pts) @ -Low likelihood (Sandra Medina) Disposition <Carly Peres - Last Filed: 12/10/22 18:07> Is patient prescribed a controlled substance at d/c from ED?: No Time of Disposition: 23:31 <Sandra Medina - Last Filed: 12/10/22 23:31> Clinical Impression: Dizziness, Increased thirst, Numbness of extremity Disposition: HOME SELF-CARE Condition: Stable Additional Instructions: Please monitor symptoms closely Please return to the nearest emergency department symptoms worsening or persist Referrals: Luis Rae MD [Primary Care Provider] - 1-2 days
[2022-12-10 18:36] LABS: Basophils # (A) 0.1 k/uL (0-0.2); Basophils % (A) 1 %; Eosinophils # (A) 0.3 k/uL (0-0.7); Eosinophils % (A) 3 %; HCT 40.7 % (34.0-46.0); Lymphocytes # (A) 2.7 k/uL (1.0-4.8); Lymphocytes % (A) 27 %; MCH 30.9 pg (25.0-35.0); MCHC 34.5 g/dL (31.0-37.0); MCV 89.8 fL (80.0-100.0); Mean Platelet Volume 7.2; Monocytes # (A) 0.5 k/uL (0-1.0); Monocytes % (A) 5 %; Neutrophils # (A) 6.2 k/uL (1.3-7.7); Neutrophils % (A) 62 %; Platelet Count 290 k/uL (150-450); RBC 4.53 m/uL (3.80-5.40); RDW 12.7 % (11.5-15.5)
[2022-12-10 18:47] LABS: ALT 26 U/L (4-34); AST 29 U/L (14-36); African American GFR (CKD) >90 (>60 ml/min/1.73 sqM); Albumin 4.2 g/dL (3.5-5.0); Alkaline Phosphatase 79 U/L (38-126); Anion Gap 12 mmol/L; Blood Urea Nitrogen 14 mg/dL (7-17); Calcium 9.1 mg/dL (8.4-10.2); Carbon Dioxide 23 mmol/L (22-30); Chloride 102 mmol/L (98-107); Glucose 209 mg/dL (74-99); Non-African American GFR(CKD) >90 (>60 ml/min/1.73 sqM); Potassium 4.4 mmol/L (3.5-5.1); Sodium 137 mmol/L (137-145); Total Bilirubin 0.8 mg/dL (0.2-1.3); Total Protein 7.5 g/dL (6.3-8.2)
[2022-12-10] MEDS ORDERED: SODIUM CHLORIDE 0.9% 1,000 ML IV ONE (21:47)
[2022-12-10 23:06] LABS: Appearance,Urine Clear (Clear); Bilirubin,Urine Negative (Negative); Blood,Urine Negative (Negative); Color,Urine Light Yellow; Glucose,Urine (UA) Negative (Negative); Ketones,Urine Negative (Negative); Leukocyte Esterase,Urine Negative (Negative); Nitrite,Urine Negative (Negative); Protein,Urine Negative (Negative); Urobilinogen,Urine <2.0 mg/dL (<2.0)
[2022-12-10] MEDS ORDERED: MECLIZINE 12.5 MG TAB PO STA (23:25)
--- NOTE | 2022-12-10 23:26 | CT ---
EXAM: CT Head Without Intravenous Contrast CLINICAL HISTORY: ITS.REASON CT Reason: pain TECHNIQUE: Axial computed tomography images of the head/brain without intravenous contrast. CTDI is 45.2 mGy and DLP is 1013 mGy-cm. This CT exam was performed using one or more of the following dose reduction techniques: automated exposure control, adjustment of the mA and/or kV according to patient size, and/or use of iterative reconstruction technique. COMPARISON: No relevant prior studies available. FINDINGS: No acute intracranial hemorrhage. No midline shift or mass effect. The territorial jimenez-white matter differentiation is maintained throughout. Age-related cerebral volume loss. Periventricular and subcortical white matter hypoattenuation, consistent with chronic microangiopathy. The visualized orbits appear grossly unremarkable. The calvarium is intact. The visualized paranasal sinuses and mastoid air cells are grossly clear. IMPRESSION: No acute intracranial hemorrhage, midline shift, or mass effect. EXAM: CT Cervical Spine Without Intravenous Contrast CLINICAL HISTORY: ITS.REASON CT Reason: pain TECHNIQUE: Axial computed tomography images of the cervical spine without intravenous contrast. CTDI is 24.4 mGy and DLP is 612.8 mGy-cm. This CT exam was performed using one or more of the following dose reduction techniques: automated exposure control, adjustment of the mA and/or kV according to patient size, and/or use of iterative reconstruction technique. COMPARISON: No relevant prior studies available. FINDINGS: The vertebral body heights are maintained. The craniocervical junction is intact. The atlanto-dens interval is maintained. The dens is intact. There is no spondylolisthesis. Multilevel cervical spondylosis and degenerative disc disease. Straightening of the cervical lordosis. The unenhanced neck soft tissues are grossly unremarkable. The visualized lung apices are grossly clear. IMPRESSION: No acute fracture or subluxation of the cervical spine.
[2022-12-10 23:37] LABS: Amphetamine Screen,Urine Not Detected (NotDetected); Barbiturate Screen,Urine Not Detected (NotDetected); Benzodiazepines Screen,Urine Not Detected (NotDetected); Cocaine Screen,Urine Not Detected (NotDetected); Methadone Screen, Urine Not Detected (NotDetected); Opiate Screen,Urine Not Detected (NotDetected); Oxycodone Screen, Urine Not Detected (NotDetected); Phencyclidine Screen,Urine Not Detected (NotDetected); Tricyclic Antidepressant,Urine Not Detected (NotDetected); Urn Cannabinoid Scrn Detected (NotDetected)
[2022-12-11 00:30] VITALS: BP 166/93; PULSE 71; RESP 20; TEMP 98
== END 2022-12-11 00:31 | disposition home or self-care (01) ==
LOC: EC 17:59
DX: R42 Dizziness and giddiness (principal); R20.0 Anesthesia of skin; R63.1 Polydipsia; F41.9 Anxiety disorder, unspecified; F32.A Depression, unspecified; Z79.899 Other long term (current) drug therapy; Z88.8 Allergy status to other drugs, medicaments and biological substances; Z20.822 Contact with and (suspected) exposure to COVID-19
CPT/HCPCS: 36415; 70450; 72125; 80053; 80306; 81003; 83605; 84484; 85025; 87636; 96360; 99285